=== PATIENT | male | born 1995 | race Caucasian/White ===

== ENCOUNTER 2023-11-03 10:23 | Emergency (ER) | payer BC, SELFPAY ==
[2023-11-03 10:23] VITALS: BP 164/93; PULSE 81; RESP 16; TEMP 35.9; O2SAT 100; BMI 27.6
--- NOTE | 2023-11-03 10:26 | RAD_ITS ---
STUDY: X-RAY - LEFT RADIUS AND ULNA REASON FOR EXAM: Male, 28 years old. Pain /injury TECHNIQUE: 2 view(s) of the forearm. COMPARISON: None. FINDINGS: There is no demonstrated soft tissue swelling. Normal visualized radius. Normal visualized ulna. RAD/Forearm 2 Views IMPRESSION: Normal x-ray examination of the radius and ulna. Electronically Signed: Keo Hunter MD at 10:56 EST ,
[2023-11-03 12:15] VITALS: BP 145/71; PULSE 83; RESP 14; O2SAT 99
--- NOTE | 2023-11-03 12:22 | RAD_ITS ---
STUDY: X-RAY - LEFT WRIST REASON FOR EXAM: Male, 28 years old. Wrist pain following injury. TECHNIQUE: 3 view(s) of the wrist were obtained. COMPARISON: None. FINDINGS: Normal visualized distal radius and ulna. Normal radiocarpal articulation. Normal distal radioulnar articulation. Normal carpal bones. Normal carpal articulations. Normal carpometacarpal articulation of the thumb. Normal second through fifth carpometacarpal articulations. Normal visualized metacarpal bones. The soft tissue structures are unremarkable. RAD/Wrist min 3 Views IMPRESSION: Normal x-ray examination of the wrist. Electronically Signed: Keo Hunter MD at 13:02 EST ,
--- NOTE | 2023-11-03 12:32 | EDS_ITS ---
HPI History of Present Illness Chief Complaint: Upper Extremity Injury Narrative Narrative: 28-year-old male presenting with left distal wrist pain. He states it started this morning to hurt worse but did start yesterday after work. 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 He states he has to do this quite frequently. He states sometimes he has to pull vigorously at other times he has to push and restrain. There is also twisting motions. Patient does not remember exactly what caused the pain but knows he woke up with it today. Does not note any bruising. No numbness or tingling. No scratches/lacerations. PFSH PFSH Medical History no medical history Allergy/AdvReac Type Severity Reaction Status Date / Time No Known Allergies Allergy Verified 11/03/23 12:13 Social History Smoking Status: Unknown if ever smoked ROS ROS ED Constitutional Constitutional ED: Denies chills, fever(s) or sweats Eyes Eyes: Denies blurry vision or change in vision ENT ENT ED: Denies ear pain or sore throat Cardiovascular Cardiovascular: Denies chest pain, palpitations or racing heartbeat Respiratory/Chest Respiratory/Chest: Denies cough, dyspnea or sputum Gastrointestinal Gastrointestinal: Denies abdominal pain, constipation, diarrhea, nausea or vomiting Genitourinary Genitourinary ED: Denies dysuria, hematuria or urinary frequency Musculoskeletal Musculoskeletal: Reports other Details: Left wrist pain ; Denies arthralgias, myalgias or neck pain Integumentary Denies abscess, Abrasions or rash Neurologic Neurologic: Denies headache(s), paresthesias or weakness Psychiatric Psychiatric: Denies anxiety, depression, suicidal ideation or suicidal thoughts Endocrine Endocrinology: Denies polydipsia or polyuria EXAM Physical Exam Const Vital Signs: 11/03/23 10:23 11/03/23 12:15 Temperature 96.7 F L Temperature Source Temporal Pulse Rate 81 83 Respiratory Rate 16 14 Blood Pressure 164/93 H 145/71 H Blood Pressure Mean 116 95 Pulse Ox 100 99 Oxygen Delivery Method Room Air Room Air Positive well nourished General Appearance ED: NAD HEENT Reports moist mucous membranes Eyes PERRL and EOMs intact bilaterally Resp normal respiratory effort Cardio regular rate and regular rhythm Extremity Extremity Narrative: Tenderness to palpation of the left medial wrist. Flexion, extension, circumduction home and pain. No bruising, edema. Left hand strength 5/5 normal hand central sterilization technician strength. Neurovascular intact brisk cap refill to all 5 fingers. Radial pulse 2+. Neuro oriented x3 and CN's II-XII intact bilaterally Sensorium / Orientation: alert Psych mental status grossly normal MDM MDM MDM Narrative Medical decision making narrative: Patient presenting with strain of the left wrist from her 3 children. On examination he has some very mild tenderness of the left medial wrist. X-ray of the left wrist on my interpretation shows no acute fracture. Patient counseled he will need Tylenol, ibuprofen, ice as this is a minor wound. He requests a wrist splint which was provided. Work restrictions were given as this is a Workmen's Comp. case. Return precautions discussed. Impression: 1. Left wrist strain Lab Data Attestation: I reviewed the patient's lab results. Radiography Diagnostic Testing: Clinical Impression(s) from Imaging Studies Forearm X-Ray 11/03/23 10:26 IMPRESSION: Normal x-ray examination of the radius and ulna. Electronically Signed: Keo Hunter MD at 10:56 EST , Discharge Plan Triage Chief Complaint: Upper Extremity Injury ED Provider: Nathan Wilson Dx/Rx/DC Orders Instructions: ED Wrist Splint, Velcro, ED Wrist Sprain Primary Care Provider: Doctor,Acute Referrals: [facility] [Non-Staff] - 3-5 Days Disposition Disposition: Home, Self Care
== END 2023-11-03 13:24 | disposition home or self-care (01) ==
LOC: ED 12:39
PROVIDERS: Emergency Provider Student in an Organized Health Care Education/Training Program; Visit Provider Student in an Organized Health Care Education/Training Program
DX: S66.912A Strain of unspecified muscle, fascia and tendon at wrist and hand level, left hand, initial encounter (principal); X50.9XXA Other and unspecified overexertion or strenuous movements or postures, initial encounter; Y99.0 Civilian activity done for income or pay; Y92.119 Unspecified place in children's home and orphanage as the place of occurrence of the external cause
CPT/HCPCS: 73090; 73110; 99283